=== PATIENT | female | born 1980 | race Caucasian/White ===

== ENCOUNTER 2025-01-14 22:41 | Emergency (ER) | payer OTHER, SELFPAY ==
[2025-01-14 22:41] VITALS: BMI 26.5
[2025-01-14 22:43] VITALS: BP 150/118
--- NOTE | 2025-01-15 00:32 | ED.GENMED ---
History of Present Illness
General
Chief Complaint: Exposure-Chemical
Source: patient
Exam Limitations: none
Time Seen by Provider: 01/15/25 00:26
Nursing documentation reviewed up to this point in time: agreed with
History of Present Illness
History of Present Illness:
44-year-old female with no past medical history who presents emergency department today after a chemical exposure to the eye. She was at home when she was attempting to separate 2 top lift compressor pods that were stuck together. During a twisting motion
to separate them the pod ruptured, and contents came into direct contact with her eye. She feels like there is a foreign body stuck in her eye. The exposure occurred at approximately 8 PM. Following exposure, the patient experienced significant
burning discomfort in affected eye. She attempted to rinse the eye at the sink but had difficulty opening her eyes due to burning sensation. She into shower and poured cups of water over the eye, her was able to help flush out the eye with
water with irrigation. The patient also describes a sensation of scratchiness. She denies blurry vision. Denies photophobia. She denies headache
Review of Systems
Review of Systems
All Other Systems: ROS reviewed and negative except as documented in HPI and ROS
Phy Exam
Physical Exam
Physical Exam:
General: Patient is well appearing and in no acute distress; non-toxic
Skin: Warm and dry, no rashes or lesions
Head: Normocephalic, atraumatic
Eyes: Right eye sclera injection noted with small clear foreign body which was removed with q-tip, horizontal corneal abrasion, EOMs intact.
right eye pH of 7
Cardiac: Regular rate and rhythm, no murmurs
Pulm: Normal respiratory effort, no wheezes, rales, or rhonchi
Neuro: CN II-XII intact, no focal neurologic deficits.
Psychiatric: Appropriate mood and affect.
Course
Orders/Labs/Results
Orders:
Orders
01/15/25 00:33
Visual Acuity- Treatment ONCE
01/15/25 00:39
Tetracaine HCl [Tetracaine 0.5% Ophthalmic Solution] See Dose Instructions OPHTH ONCE ONE
01/15/25 01:23
Fluorescein Sodium [Ful-Ayana] 3 mg .ROUTE .STK-MED ONE
01/15/25 01:40
Tetanus/Diphth/Acelpertussis [Adacel] 0.5 ml .ROUTE .STK-MED ONE
01/15/25 04:21
Purified Water Eye Wash [Dacriose Eye Wash Solution] 120 ml .ROUTE .STK-MED ONE
Tetracaine HCl [Tetracaine 0.5% Ophthalmic Solution] 1 drop .ROUTE .STK-MED ONE
Vital Signs
Initial and Last Documented VS:
Initial Vital Signs
Temp Pulse Resp BP Pulse Ox
98.4 F 74 18 150/118 98
01/14/25 22:43 01/14/25 22:43 01/14/25 22:43 01/14/25 22:43 01/14/25 22:43
Last Documented Vital Signs
Temp Pulse Resp BP Pulse Ox
98.4 F 74 18 150/118 98
01/14/25 22:43 01/14/25 22:43 01/14/25 22:43 01/14/25 22:43 01/15/25 00:32
MDM/Problems Addressed
Differential Diagnosis Includes:
ddx include chemical eye injury, chemosis, corneal abrasion, corneal ulcer, iritis, blepharitis
MDM/Problems Addressed:
44-year-old female presents to the emergency department today with concerns of eye irritation and foreign body sensation in her eye after getting parts of a Tide pod into her eye. On exam, she has scleral injection noted with a small piece of
plastic which was removed from the eye with a Q-tip. She also has corneal uptake with fluorescein suggesting a corneal abrasion. Patient was evaluated during downtime. Paper prescription and discharge paperwork given. Follow up with optho
discussed.
*Pulse Oximetry
SaO2: 98
Nasal Cannula flow liters per minute: 100
Oxygen Mode of Delivery: Room air
Patient hypoxic: no
*Critical Care Note
Total Time (30-74mins, 75-104mins- exclusive of procedures): Not Applicable
ED Attending Note
-
Portions of this chart may have been created with voice recognition software.� Occasional wrong word or��sound alike� substitutions may have occurred due to the inherent limitations of voice recognition software.
Discharge Plan
Departure
Patient Disposition: Home (Routine Discharge)
Date of Disposition: 01/15/25
Time of Disposition: 02:32
Patient with high blood pressure during this ER visit?: Yes
Condition: Good
Discharge Problem:
Corneal abrasion, Chemical injury of eye
Prescriptions:
No Action
calcium carbonate 500 MG tablet
500 mg PO QPM
multivitamin with folic acid [Tab-A-Brad] 1 TABLET tablet
1 tab PO QPM
Referrals:
Sierra Campo MD [Family Provider, Family Practice]
Activity Restrictions/Additional Instructions:
[facility] during [facility]
Interventions
Interventions:
*Risk Screen - Suicide Last Done: 01/14/25 22:43
*General Assessment Last Done: 01/14/25 23:26
*Neglect/Abuse Screening Last Done: 01/14/25 22:43
*ED- Fall Risk Assessment Last Done: 01/14/25 23:24
*ED COVID-19 Vaccine History Last Done: 01/14/25 23:24
*Nursing Disposition Last Done: 01/15/25 02:33
ED-EENT Assessment Last Done: 01/14/25 23:23
ED- Pulmonary Assessment Last Done: 01/14/25 23:23
ED-Skin Assessment Last Done: 01/14/25 23:23
Discharge Date and Time
Discharge Date/Time: 01/15/25 02:33
Print Language: FILIPINO
--- NOTE | 2025-01-15 02:18 | DOWNTIME ---
There was a [employer] Downtime on 01/15/2025 from 0100 to 01/15/2025 at 0215. Downtime documentation of patient's care, including medication administrations, has been reconciled in the electronic record per guidelines. Refer to the
patient's paper chart under the miscellaneous tab to see printed paper medication records and downtime forms.
== END 2025-01-15 02:33 | disposition home or self-care (01) ==
LOC: EMR 22:41
PROVIDERS: EMERGENCY PHYSICIAN Student in an Organized Health Care Education/Training Program; FAMILY PHYSICIAN Family Medicine
DX: S05.01XA Injury of conjunctiva and corneal abrasion without foreign body, right eye, initial encounter (principal); R03.0 Elevated blood-pressure reading, without diagnosis of hypertension; W44.8XXA Other foreign body entering into or through a natural orifice, initial encounter; Z77.098 Contact with and (suspected) exposure to other hazardous, chiefly nonmedicinal, chemicals
CPT/HCPCS: 99283; 90715